=== PATIENT | male | born 1995 | race Caucasian/White ===

== ENCOUNTER 2019-09-24 06:40 | Day surgery (SDC) | payer BC, OTHER ==
[~2019-09-24 06:40] MED LIST: Lactated Ringers 1,000 ML IV SCH; Sodium Chloride 0.9% 10 ML SDV IV PRN; Sodium Chloride 0.9% 10 ML Syringe FLUSH PRN; Sodium Chloride 0.9% 2.5 ML Syringe FLUSH PRN; ceFAZolin 2 GM in Premix Bag 1 BAG IV ONE
[2019-09-24] MEDS ORDERED: Propofol 200 MG/20 ML SDV ONE (07:06)
[2019-09-24] MEDS ORDERED: Lidocaine 2% 5 ML SDV ONE (07:06)
[2019-09-24] MEDS ORDERED: Dexamethasone 4 MG/ML 5 ML MDV ONE (07:08)
[2019-09-24] MEDS ORDERED: Ondansetron 4 MG/2 ML SDV ONE (07:08)
[2019-09-24] MEDS ORDERED: HYDROmorphone 2 MG/ML Syringe ONE (07:12)
[2019-09-24] MEDS ORDERED: Midazolam 1 MG/ML 2 ML SDV ONE (07:12)
[2019-09-24] MEDS ORDERED: fentaNYL 100 MCG/2 ML SDV ONE (07:12)
[2019-09-24] MEDS ORDERED: Bupivacaine 0.5% 30 ML SDV ONE (07:30)
--- NOTE | 2019-09-24 07:41 | PCM.PREANE ---
Preanesthetic Assessment - Anesthesia/Transfusion/Family Hx Anesthesia History: Prior Anesthesia Without Reaction Family History of Anesthesia Reaction: No Transfusion History: No Prior Transfusion(s) Intubation History: Unknown - Review of Systems General: No Symptoms Pulmonary: No Symptoms Cardiovascular: No Symptoms Gastrointestinal: No Symptoms Neurological: No Symptoms Other: Reports: None - Physical Assessment NPO Status Date: 09/23/19 NPO Status Time: 11:59 Vital Signs: Last Vital Signs Temp 36.3 C 09/24/19 06:45 Pulse 67 09/24/19 06:45 Resp 16 09/24/19 06:45 BP 116/77 09/24/19 06:45 Pulse Ox 100 09/24/19 06:45 Height: 5 ft 10 in Weight: 72.121 kg ASA Class: 1 Mental Status: Alert & Oriented x3 Airway Class: Mallampati = 1 Dentition: Reports: Normal Dentition Thyro-Mental Finger Breadths: 3 Mouth Opening Finger Breadths: 3 ROM/Head Extension: Full Lungs: Clear to Auscultation, Normal Respiratory Effort Cardiovascular: Regular Rate, Regular Rhythm - Allergies Allergies/Adverse Reactions: Allergies Allergy/AdvReac Type Severity Reaction Status Date / Time No Known Allergies Allergy Verified 09/17/19 13:47 - Blood Blood Available: No - Anesthesia Plan Pre-Op Medication Ordered: None - Acknowledgements Anesthesia Type Planned: General Anesthesia Pt an Appropriate Candidate for the Planned Anesthesia: Yes Alternatives and Risks of Anesthesia Discussed w Pt/Guardian: Yes Pt/Guardian Understands and Agrees with Anesthesia Plan: Yes PreAnesthesia Questionnaire - Past Health History Medical/Surgical History: Denies Medical/Surgical History - Past Surgical History Head Surgeries/Procedures: Reports: None GI Surgical History: Reports: Appendectomy - SUBSTANCE USE Smoking Status *Q: Current Some Day Smoker Tobacco Use Within Last Twelve Months: Pipe (once a week) - HOME MEDS Home Medications: Home Meds . [No Known Home Meds] 09/17/19 [History] - CURRENT (IN HOUSE) MEDS Current Meds: Current Medications Lactated Ringer's (Ringers, Lactated) 1,000 mls @ 125 mls/hr IV ASDIRECTED SHELBY Last Admin: 09/24/19 07:31 Dose: 125 mls/hr Documented by: Sodium Chloride (Saline Flush) 2.5 ml FLUSH ASDIRECTED PRN PRN Reason: Keep Vein Open Sodium Chloride (Normal Saline) 10 ml IV ASDIRECTED PRN PRN Reason: IV Use Sodium Chloride (Saline Flush) 10 ml FLUSH ASDIRECTED PRN PRN Reason: Keep Vein Open Discontinued Medications Bupivacaine HCl (Marcaine 0.5%) Confirm Administered Dose 30 ml .ROUTE .STK-MED ONE Stop: 09/24/19 07:31 Dexamethasone (Dexamethasone) Confirm Administered Dose 20 mg .ROUTE .STK-MED ONE Stop: 09/24/19 07:09 Fentanyl (Sublimaze) Confirm Administered Dose 100 mcg .ROUTE .STK-MED ONE Stop: 09/24/19 07:13 Hydromorphone HCl (Dilaudid) Confirm Administered Dose 2 mg .ROUTE .STK-MED ONE Stop: 09/24/19 07:13 Cefazolin Sodium/Dextrose 2 gm (/ Premix) 50 mls @ 100 mls/hr IV ONETIME ONE Stop: 09/18/19 16:37 Lidocaine (Xylocaine-Mpf 2%) Confirm Administered Dose 5 ml .ROUTE .STK-MED ONE Stop: 09/24/19 07:07 Midazolam HCl (Versed 1 Mg/Ml) Confirm Administered Dose 2 mg .ROUTE .STK-MED ONE Stop: 09/24/19 07:13 Ondansetron HCl (Zofran) Confirm Administered Dose 4 mg .ROUTE .STK-MED ONE Stop: 09/24/19 07:09 Propofol (Diprivan 20 Ml) Confirm Administered Dose 200 mg .ROUTE .STK-MED ONE Stop: 09/24/19 07:07
[2019-09-24] MEDS ORDERED: Ketamine 500 mg/10 ML MDV ONE (08:11)
[2019-09-24] MEDS ORDERED: ceFAZolin/Dextrose,Iso-Osmotic 2 GM/50 ML Duplex Bag IV ONE (08:14)
[2019-09-24] MEDS ORDERED: ceFAZolin 1 GM Vial ONE (08:56)
--- NOTE | 2019-09-24 09:53 | PCM.OPNOTE ---
- General Post-Op/Procedure Note Date of Surgery/Procedure: 09/24/19 Operative Procedure(s): Right inguinal hernia repair Findings: Small cord lipoma and indirect inguinal hernia Pre Op Diagnosis: Inguinal hernia Post-Op Diagnosis: same Anesthesia Technique: General LMA Primary Surgeon: Sana Majano Fluid Replacement, Intraop: 800 EBL in mLs: 10 Condition: Good
--- NOTE | 2019-09-24 10:44 | PCM.POSTAN ---
POST ANESTHESIA ASSESSMENT - MENTAL STATUS Mental Status: Alert, Oriented - VITAL SIGNS Vital Signs: Last Vital Signs Temp 36.4 C 09/24/19 09:52 Pulse 63 09/24/19 10:22 Resp 13 09/24/19 10:22 BP 106/63 09/24/19 10:22 Pulse Ox 95 09/24/19 10:22 - RESPIRATORY Respiratory Status: Respiratory Rate WNL, Airway Patent, O2 Saturation Stable - CARDIOVASCULAR CV Status: Pulse Rate WNL, Blood Pressure Stable - GASTROINTESTINAL GI Status: No Symptoms - PAIN Pain Score: 2 - POST OP HYDRATION Hydration Status: Adequate & Stable - OBSERVATIONS Free Text/Narrative:: no anesthesia problems
[2019-09-24] MEDS ORDERED: Ondansetron 4 MG/2 ML SDV IVPUSH ONE (10:59)
[2019-09-24] MEDS ORDERED: Acetaminophen/oxyCODONE 325-5 MG Tab PO PRN (12:52)
[2019-09-24] MEDS ORDERED: Promethazine 25 MG/ML SDV IM ONE (13:12)
--- NOTE | 2019-09-24 14:24 | PCM48HPAN ---
Post Anesthesia Note - EVALUATION WITHIN 48HRS OF ANESTHETIC Vital Signs in Normal Range: Yes Patient Participated in Evaluation: Yes Respiratory Function Stable: Yes Airway Patent: Yes Cardiovascular Function Stable: Yes Hydration Status Stable: Yes Pain Control Satisfactory: Yes Nausea and Vomiting Control Satisfactory: Yes (Improved) Mental Status Recovered: Yes Vital Signs: Last Vital Signs Temp 36.4 C 09/24/19 10:27 Pulse 62 09/24/19 12:27 Resp 14 09/24/19 12:27 BP 107/68 09/24/19 12:27 Pulse Ox 96 09/24/19 12:27 - COMMENTS/OBSERVATIONS Free Text/Narrative:: Doing well. No anesthesia problems.
--- NOTE | 2019-09-24 21:43 | OR ---
SURGEON: SANA MAJANO MD DATE OF PROCEDURE: 09/24/2019 PREOPERATIVE DIAGNOSIS: Right inguinal hernia. POSTOPERATIVE DIAGNOSIS: Right indirect inguinal hernia. PROCEDURE PERFORMED: Right inguinal hernia repair with mesh. PRIMARY SURGEON: Sana Majano MD ANESTHESIA: General LMA. FLUIDS: 900 mL of crystalloid. ESTIMATED BLOOD LOSS: 10 mL. FINDINGS: Indirect right inguinal hernia. COMPLICATIONS: None. INDICATIONS: The patient is a 24-year-old male who presented to clinic with a bulge in his right groin. He was found to have a right inguinal hernia. The patient and I discussed the pathology of abdominal wall hernias and the need for repair with mesh. The patient and I discussed the procedure, expected perioperative course, and risks. He verbalized understanding and wishes to proceed. PROCEDURE IN DETAIL: The patient was brought into the OR and placed on the OR table in supine position. A time-out was completed verifying the patient's name, age, date of , allergies, and procedure to be performed. General LMA anesthesia was induced. The lower abdomen, groin, and genitalia were then prepped and draped in usual standard fashion. I anesthetized an area one fingerbreadth above the right inguinal ligament with 0.5% Marcaine plain. A 10 blade was then used to make an oblique incision over this area. Cautery was used to dissect down through Blanche fascia down to the external oblique. Once the external oblique was identified, it was incised along the length of its fibers with a 15 blade. Metzenbaum scissors were then used to extend the incision medially and laterally, opening up the external oblique down to the external ring. Next, the external oblique was grasped with hemostats on both sides. The cord, cord structures, as well as the hernia sac were freed up circumferentially and a Cierra drain was placed around it. The hernia sac was identified along the top of the cord structures. It was stripped down using a Kittner as well as graspers. Metzenbaum scissors were then used to open up the hernia sac and the hernia sac was explored. There was no fluid or intestinal contents. I could easily palpate within the abdomen through the internal ring through the sac. The hernia sac was freed up up to the internal ring. A 0 Vicryl stick tie was placed around the base. It was then ligated at its base. The cut end of the hernia sac appeared to be hemostatic and was allowed to retract back into the internal ring. The hernia sac was sent to pathology. Next, attention was made to placing a Prolene mesh to cover the floor. A small plug and patch were brought into place. A small plug was then placed within the internal ring and sutured to the internal ring with interrupted 0 Ethibond sutures. Care was taken to salvage the ilioinguinal nerve which was left above the repair of the mesh. The mesh was then sutured to the pubic tubercle medially along the ilioinguinal ligament inferiorly and along the conjoint tendon superiorly, making a slit for the cord and cord structures. The cord and cord structures easily passed through this and the opening was just enough to accept the tip of my finger. Once the mesh was secured, a Valsalva maneuver was performed and the mesh appeared intact. The wound was then irrigated with normal saline and suctioned out. Hemostasis appeared to be achieved. The external oblique was then closed with a running 0 Vicryl suture, taking care not to strangulate the cord and to recreate the external ring. The Blanche fascia was closed with a running 3-0 Vicryl suture. The subcutaneous fat underneath the skin was closed with interrupted 3-0 Vicryl sutures. The skin was closed with a running 4-0 Monocryl stitch. Steri-Strips and sterile dressings were applied. All counts were complete and correct at the end the case. The patient was taken to the PACU in stable condition. No immediate complications were noted. LUPILLO COY /[id number]
== END 2019-09-24 14:30 | disposition home or self-care (01) ==
LOC: MW.SDS 06:40
PROVIDERS: ATTEND Surgery
DX: K40.90 Unilateral inguinal hernia, without obstruction or gangrene, not specified as recurrent (principal); F17.210 Nicotine dependence, cigarettes, uncomplicated; F17.290 Nicotine dependence, other tobacco product, uncomplicated
CPT/HCPCS: 49505; A9270; C1781; J0690; J1170; J2001; J2250; J2405; J2550; J2704; J3010; J3490; J7120; 88302; J1100